=== PATIENT | male | born 1970 | race Caucasian/White ===

== ENCOUNTER 2018-04-27 07:55 | Day surgery (SDC) | payer OTHER ==
[~2018-04-27] VITALS: Ht 188 cm; Wt 112.9 kg
[~2018-04-27 07:55] MED LIST: HYDROmorphone 2 MG/ML VIAL IV PRN; IBUP200T44 PO; IV RINGERS,LACTATED 1000ML 1,000 ML IV SCH; LIDOCAINE 1% PF 2 ML VIAL. ID PRN; MORPHINE SULFATE 2 MG/ML VIAL. IV PRN; ONDANSETRON PF 4 MG/2 ML VIAL. IV PRN; PROCHLORPERAZINE 10 MG/2 ML VIAL. IV PRN; VENTOLIN HFA18 GM INH; ceFAZolin 2GM PREMIX 2 GM/50 ML BAG IV ONE; fentaNYL PF VIAL 100 MCG/2 ML VIAL IV PRN
[2018-04-27] MEDS ORDERED: FEXO180T81 PO (08:25)
[2018-04-27] MEDS ORDERED: RANI150T21 PO (08:25)
[2018-04-27] MEDS ORDERED: BUPIVAC MPF-EPI 0.5%-1:200000 30 ML VIAL. ONE (09:07)
[2018-04-27] MEDS ORDERED: EPINEPHrine VIAL 30 MG/30 ML VIAL ONE (09:07)
[2018-04-27] MEDS ORDERED: SEVOFLURANE 61 TO 120 MINUTES. IH ONE (09:11)
[2018-04-27] MEDS ORDERED: fentaNYL PF VIAL 100 MCG/2 ML VIAL ONE (09:11)
[2018-04-27] MEDS ORDERED: LIDOCAINE 2% PF Vial for OR 5 ML VIAL. ONE (09:12)
[2018-04-27] MEDS ORDERED: PROPOFOL 20 ML IV ONE (09:12)
[2018-04-27] MEDS ORDERED: DEXAMETHASONE SOD PHOS 20 MG/5 ML VIAL. ONE (09:12)
[2018-04-27] MEDS ORDERED: MIDAZOLAM HCL/PF 2 MG/2 ML VIAL. ONE (09:12)
[2018-04-27] MEDS ORDERED: ONDANSETRON PF 4 MG/2 ML VIAL. ONE (09:12)
[2018-04-27] MEDS ORDERED: KETOROLAC 30 MG/ML INJ FOR OR. INJ ONE (09:12)
[2018-04-27] MEDS ORDERED: HYDR-3165 PO (10:12)
--- NOTE | 2018-04-27 10:12 | DISCH ---
DISCHARGE INSTRUCTIONS Condition on Discharge Condition on Discharge: Stable Activity After Discharge Activity Instructions for Disc: Other, see below (symptomatic restrictions only , may increase activity slowly as tolerated) Weight Bearing Status after Di: As tolerated Diet after Discharge Diet after Discharge: Regular Wound Incision Care Wound/Incision Care: Ice to area for comfort, Keep wound elevated, Change dressing (May remove dressing in 2 days may then shower no soaking until sutures removed) Contacting the [facility] after DC Call your doctor for: Concerns you may have Follow-Up Follow up with: Kellen 10-14 days FRANDY LOPEZ MD Apr 27, 2018 10:12
[2018-04-27] MEDS ORDERED: HYDROcodone/APAP 7.5/325MG 1 TAB TABLET PO ONE (11:30)
[2018-04-27 11:36] VITALS: BP 141/85
--- NOTE | 2018-04-27 19:54 | PDOC4 ---
Operative Note Operative Note Date of surgery: 04/27/2018 Preoperative diagnosis: Left knee medial meniscus tear Postoperative diagnosis: Same plus symptomatic medial parapatellar plica Operative procedure: Left knee arthroscopy partial medial meniscectomy and excision medial parapatellar plica Surgeon: Kellen Anesthesia: Gen. Estimated blood loss: 5 mL Complications: None Operative indications: Matthew is a 48-year-old male very active has had pain swelling and mechanical sensation of catching precipitating instability type feelings in his left knee unresponsive to nonoperative treatment. MRI appeared to show a tear of the medial meniscus. I talked with him about operative and nonoperative treatment options the typical poor healing of the inner portion of the meniscus the possibility of meniscal repair versus partial meniscectomy depending on the orientation and addressing any other symptomatic pathology observed in the knee joint. I also talked to him about the possibility of complications including infection continued pain nerve or blood vessel damage medical or other anesthetic complications among others. All his questions were answered he agrees to proceed with surgical evaluation and treatment. Operative text: Patient was identified procedure verified patient placed in the supine position on the operating table. After adequate amounts of general anesthesia were administered the left knee was prepped and draped in standard sterile fashion with a thigh tourniquet. After timeout was performed patient procedure identified and verified the left lower extremity was exsanguinated by Esmarch bandage tourniquet inflated to 350 mmHg a lateral portal was established a medial portal established using spinal needle localization. The knee joint was then systematically examined. He was noted to have a small free edge tear of the posterior horn body area of the medial meniscus which was trimmed back to stable tissue using arthroscopic punch and shaver. ACL was probed and found to be intact as was the remainder of the medial meniscus and medial and lateral joint cartilage surfaces. Lateral meniscus was likewise probed and found to be intact. There were no loose bodies noted in the gutters or suprapatellar pouch area however he did have a large apparently symptomatic medial parapatellar plica as there was a large synovial fold on the medial compartment and an area corresponding to have significant irritation and redness along the medial aspect of the medial condyle corresponding to the area of the plica rubbing throughout range of motion. Patellofemoral joint was noted to be in good condition with good stability throughout motion. The symptomatic medial plica was excised with the arthroscopic shaver and verified to be adequately removed with no further impingement throughout range of motion. The knee was again toured to ensure no loose bodies or pathology present and was drained of arthroscopic fluid portals were closed with nylon sutures the fat pad and portal areas were infused with approximately 30 mL of half percent Marcaine with epinephrine. Sterile dressings were applied patient was returned recovery room in stable condition having tolerated procedure well. Toes were noted be warm pink find deflation of tourniquet FRANDY LOPEZ MD Apr 27, 2018 19:54
== END 2018-04-27 13:45 | disposition home or self-care (01) ==
LOC: SURG 07:55
PROVIDERS: ATTEND Orthopaedic Surgery
DX: S83.242A Other tear of medial meniscus, current injury, left knee, initial encounter (principal); M67.52 Plica syndrome, left knee; J45.909 Unspecified asthma, uncomplicated; K21.9 Gastro-esophageal reflux disease without esophagitis; Z98.52 Vasectomy status; Z79.899 Other long term (current) drug therapy; X58.XXXA Exposure to other specified factors, initial encounter; Y93.89 Activity, other specified; Y92.89 Other specified places as the place of occurrence of the external cause; Y99.8 Other external cause status
CPT/HCPCS: 29881; 97116; 97162; G8978; G8979; G8980; J0690; J1100; J2001; J2250; J2405; J2704; J3010; J3490; J7120; J0171; J1885